=== PATIENT | male | born 1940 | race Caucasian/White ===

== ENCOUNTER 2018-01-08 13:23 | Outpatient (REF) | payer MEDICARE, SELFPAY ==
[2018-01-08 19:37] LABS: HCT 47.7 % (40.0-50.0); Mean Corp. HGB Concentration 33.5 g/dL (32.0-36.0); Mean Corpuscular Hemoglobin 31.3 pg (27.0-33.0); Mean Corpuscular Volume 93.3 fL (80-95); Platelet Count 159 x1000/uL (130-400); RBC 5.11 m/cumm (4.50-6.00); RBC Distribution Width 14.7 % (11.8-14.1); White Blood Cell Count 8.73 k/cumm (4.4-10.8)
[2018-01-08 20:02] LABS: ALT 37 U/L (12-78); AST 24 U/L (15-37); Albumin 3.9 g/dL (3.4-5.0); Alkaline Phosphatase 102 U/L (46-116); BUN 21 mg/dL (7-18); Bilirubin, Total 2.5 mg/dL (0.2-1.0); CREATININE 1.23 mg/dL (0.70-1.30); Calcium 8.4 mg/dL (8.5-10.1); Chloride 105 mmol/L (98-107); Estimated GFR 57.37 (mL/min/1.73m2); Glucose 82 mg/dL (70-100); Potassium 4.4 mmol/L (3.5-5.1); Sodium 139 mmol/L (136-145); TSH 2.08 uIU/mL (0.358-3.74); Total Protein 7.4 g/dL (6.4-8.2); Troponin I 0.02 ng/mL (0.00-0.06)
== END 2018-01-08 13:43 ==
LOC: NCHCN 13:23
PROVIDERS: PCP Internal Medicine; Visit Provider Physician Assistant Medical
DX: R06.09 Other forms of dyspnea (principal); R53.81 Other malaise; N13.30 Unspecified hydronephrosis; L97.529 Non-pressure chronic ulcer of other part of left foot with unspecified severity
CPT/HCPCS: 80053; 85027; 84443; 84484

== ENCOUNTER 2018-01-09 11:43 | Outpatient (REF) | payer MEDICARE, SELFPAY ==
[2018-01-09 19:01] LABS: Bilirubin Negative (Negative); Blood Negative (Negative); Clarity Clear; Glucose Negative (Negative); Ketones Negative (Negative); Leukocyte Esterase Negative (Negative); Nitrite Negative (Negative); Urobilinogen 0.2 EU/dL (Up TO 0.2); pH 5.5 (5-8)
== END 2018-01-09 12:03 ==
LOC: NCHCN 11:43
PROVIDERS: PCP Internal Medicine; Visit Provider Physician Assistant Medical
DX: R53.81 Other malaise (principal); N13.30 Unspecified hydronephrosis; L97.529 Non-pressure chronic ulcer of other part of left foot with unspecified severity
CPT/HCPCS: 81003

== ENCOUNTER 2018-07-04 19:19 | Outpatient (REF) | payer MEDICARE, SELFPAY ==
[2018-07-04 19:19] LABS: LDL CHOLESTEROL 74 mg/dL (<100)
== END 2018-07-04 19:39 ==
LOC: NCHCN 19:19
PROVIDERS: PCP Internal Medicine; Visit Provider Internal Medicine
DX: R06.09 Other forms of dyspnea (principal)
CPT/HCPCS: 80053; 83721; 85027

== ENCOUNTER 2018-07-09 11:32 | Outpatient (REF) | payer MEDICARE, SELFPAY ==
[2018-07-09 18:53] LABS: HCT 47.5 % (40.0-50.0); HGB 15.6 g/dL (13.5-17.5); Mean Corp. HGB Concentration 32.8 g/dL (32.0-36.0); Mean Corpuscular Hemoglobin 30.8 pg (27.0-33.0); Mean Corpuscular Volume 93.9 fL (80-95); Mean Platelet Volume 11.1 fL (8.0-11.0); Platelet Count 171 x1000/uL (130-400); RBC 5.06 m/cumm (4.50-6.00); RBC Distribution Width 14.7 % (11.8-14.1); White Blood Cell Count 6.58 k/cumm (4.4-10.8)
[2018-07-09 19:19] LABS: ALT 34 U/L (12-78); AST 24 U/L (15-37); Albumin 3.6 g/dL (3.4-5.0); Alkaline Phosphatase 97 U/L (46-116); BUN 20 mg/dL (7-18); Bilirubin, Total 2.5 mg/dL (0.2-1.0); CREATININE 1.48 mg/dL (0.70-1.30); Calcium 8.5 mg/dL (8.5-10.1); Chloride 109 mmol/L (98-107); Estimated GFR 46.21 (mL/min/1.73m2); Glucose 98 mg/dL (70-100); Potassium 5.7 mmol/L (3.5-5.1); Sodium 144 mmol/L (136-145)
== END 2018-07-09 11:52 ==
LOC: NCHCN 11:32
PROVIDERS: PCP Internal Medicine; Visit Provider Internal Medicine
DX: R06.09 Other forms of dyspnea (principal); K50.90 Crohn's disease, unspecified, without complications; L84 Corns and callosities; Z87.891 Personal history of nicotine dependence
CPT/HCPCS: 80053; 85027

== ENCOUNTER 2019-12-18 19:09 | Outpatient (REF) | payer MEDICARE, SELFPAY ==
[2019-12-18 23:02] LABS: Vitamin D 25 Total 8.4 ng/ml (30-100)
[2019-12-18 23:05] LABS: ALT 42 U/L (16-63); Calculated LDL 65 mg/dL (<100); Cholesterol 125 mg/dL (<200); HDL Cholesterol 39 mg/dL (40-60); Triglyceride 109 mg/dL (<150); Vitamin B12 425 pg/mL (193-986)
== END 2019-12-18 19:29 ==
LOC: NCHCN 19:09
PROVIDERS: PCP Internal Medicine; Visit Provider Internal Medicine
DX: I10 Essential (primary) hypertension (principal); E53.8 Deficiency of other specified B group vitamins
CPT/HCPCS: 80061; 82306; 82607; 84460

== ENCOUNTER 2020-03-18 16:59 | Outpatient (REF) | payer MEDICARE, SELFPAY ==
[2020-03-18 19:22] LABS: COMMENT (LAB VIEW ONLY) 89.04 mg/dL
[2020-03-18 19:25] LABS: Microalb ug/mg Crea 106.5 ug/mg Cr
== END 2020-03-18 17:19 ==
LOC: NCHCN 16:59
PROVIDERS: PCP Internal Medicine; Visit Provider Internal Medicine
DX: N49.2 Inflammatory disorders of scrotum (principal); N13.30 Unspecified hydronephrosis
CPT/HCPCS: 87077; 82043; 82570; 87086; 87186

== ENCOUNTER 2020-06-16 15:45 | Outpatient (REF) | payer MEDICARE, SELFPAY ==
[2020-06-16 20:28] LABS: HCT 44.2 % (40.0-50.0); HGB 14.2 g/dL (13.5-17.5); MCH 32.3 pg (27.0-33.0); MCHC 32.1 % (32.0-36.0); MCV 100.5 fL (80-95); MPV 11.3 fL (8.0-11.0); Platelet Count 167 10^3/uL (130-400); RDW 13.3 % (11.8-14.1); RDW-SD 49.8 fL; WBC 7.66 10^3/uL (4.4-10.8)
[2020-06-16 20:35] LABS: Anion Gap 6.7 mmol/L (3-11); BUN 24 mg/dL (7-18); CO2 27.3 mmol/L (21.0-32.0); CREATININE 1.3 mg/dL (0.70-1.30); Calcium 8.6 mg/dL (8.5-10.1); Chloride 110 mmol/L (98-107); Estimated GFR 53.39 (mL/min/1.73m2); Glucose 90 mg/dL (74-106); Potassium 4.9 mmol/L (3.5-5.1); Sodium 144 mmol/L (136-145)
[2020-06-16 20:50] LABS: PHOSPHORUS 3.3 mg/dL (2.6-4.7)
== END 2020-06-16 15:46 | disposition home or self-care (01) ==
LOC: NCHCN 15:45
PROVIDERS: PCP Internal Medicine; Visit Provider Internal Medicine
DX: I10 Essential (primary) hypertension (principal); N49.2 Inflammatory disorders of scrotum; K50.90 Crohn's disease, unspecified, without complications; Z79.899 Other long term (current) drug therapy
CPT/HCPCS: 80069; 85027

== ENCOUNTER 2021-05-23 01:10 | Outpatient (CLI) | payer MEDICARE, SELFPAY ==
--- NOTE | 2021-05-23 15:04 | DI.US_ITS ---
APPROVED REPORT EXAM: Comprehensive 2D, Doppler, and color-flow Echocardiogram Patient Location: Out-Patient Elevator Erector: Carly Estrada RDCS (AE) Indications: BOBO, Pre pacemaker change Other Information Study Quality: Adequate Conclusion Normal left ventricular wall thickness and chamber size. Estimated ejection fraction is 60%. Wall m otion is normal Normal right ventricular size and systolic function Both atria are normal in size Device lead noted in the right heart Trileaflet aortic valve without stenosis or regurgitation Normal mitral valve with mild regurgitation Normal tricuspid valve with mild to moderate regurgitation. Estimated right ventricular systolic pre ssure is 27 mmHg Wall motion Left Ventricle The left ventricle is normal size. The left ventricular systolic function is normal. The left ventric ular ejection fraction is within the normal range. There is normal left ventricular wall thickness. T here is normal LV segmental wall motion. There is no ventricular septal defect visualized. LVEF is 60 %. Right Ventricle The right ventricle is normal size. The right ventricular systolic function is normal. The RVSP is 27 .0 mmHg. Pacemaker lead is present in the right ventricle. Atria The left atrium size is normal. The right atrium size is normal. The interatrial septum is intact wit h no evidence for an atrial septal defect. Aortic Valve The aortic valve is normal in structure. Aortic valve is trileaflet. There is no aortic valvular sten osis. No aortic regurgitation is present. Mitral Valve The mitral valve is normal in structure. No evidence of mitral valve stenosis. Mild mitral regurgitat ion. Tricuspid Valve The tricuspid valve is normal in structure. There is no tricuspid valve stenosis. Mild to moderate tr icuspid regurgitation. Pulmonic Valve The pulmonary valve is normal in structure. There is no pulmonic valvular stenosis. Trace pulmonic re gurgitation. Great Vessels The aortic root is normal in size. The ascending aorta is normal in size. Aortic arch is not well vis ualized. IVC is normal in size and collapses >50% with inspiration. Pericardium There is no pericardial effusion. 2D Dimensions IVSD d PLAX 1.10 cm M: 0.6-1.2 LV Vol A2C d MOD 144.4 mL LVPW d PLAX 1.12 cm M: 0.6 - 1.2 LV Vol A4C d MOD 132.2 mL LVID d PLAX 4.57 cm M: 4.2 - 5.8 LA vol/ BSA A2C s A-L 31.2 mL/m2 LVDs 3.20 cm M: 2.5 - 4.0 LA vol/ BSA A4C s A-L 29.8 mL/m2 Ao Root d 3.18 cm M: 3.1 - 3.7 LA Vol/ BSA Biplane s A-L 31.8 mL/m2 RA Area A4C 17.20 cm2 LA Area A4C s MOD 23.51 cm2 RA Vol/ BSA A4C s A-L 22.4 mL/m2 LA Area A2C s MOD 23.10 cm2 Ao Asc Diam d 3.30 cm M: 2.6 - 3.4 LV EF A4C MOD 59.6 % LV EF Teichholz 57.0 % LV EF A2C MOD 60.6 % LVEF (Johnson's) 60.82 % M: 52 - 72 LV EF Biplane MOD 60.8 % LV Volume 100.09 mL M: 62 - 150 SV 85.60 mL LV Volume Index 42.23 mL/m2 M: 34 - 74 SV Index 36.14 mL/m2 LV Vol Biplane MOD 140.8 mL FS 29.75 % M-Mode TAPSE 2.44 cm (M/F) >1.7 LV Diastology MV E' medial 0.065 (>0.07 m/s) E/A Ratio 1.1 LV E/e MED 10.20 (<14) MV E Vmax 0.66 (0.4-1.3 m/s) MV E' lateral 0.101 (>0.1 m/s) MV A Vmax 0.60 (0.4-1.3 m/s) LV E/e LAT 6.50 (<14) MV E/A Ratio 1.03 MV E/E' medial 10.22 MV E/E' lateral 6.53 Aortic Valve LVOT Area 2.82 cm2 AoV Area Vmax 1.96 cm2 LVOT Vmax 0.85 m/s AoV Area/ BSA (Vmax) 0.83 cm2/m2 LVOT Mean Chaparro. 0.60 m/s HEENA Mean Chaparro. 1.92 cm2 LVOT Peak Grad 2.9 mmHg HEENA Mean Chaparro. Index 0.81 cm2/m2 LVOT Mean Grad 1.6 mmHg LVOT VTI 0.188 m LVOT Diam s 1.85 cm AoV Vmax 1.23 m/s Velocity Ratio 0.69 AoV Mean Chaparro. 0.88 m/s AoV Peak Grad 6.0 mmHg LVOT SV 53.12 mL AoV Mean Grad 3.4 mmHg AoV VTI 0.222 m AoV Area VTI 2.40 cm2 AoV Area/ BSA (VTI) 1.01 cm/m2 Mitral Valve MV DT 258 (160-240 msec) MR Vmax 4.69 m/s MV PHT 75 msec MR VTI 1.453 m MV Area PHT 2.94 cm2 MR Peak Grad 88.1 mmHg MV VTI 0.244 m MR Mean Grad 58.2 mmHg MV VTI Annulus 0.285 m MV Area VTI 2.60 (4.0-6.0 cm2) Pulmonary Valve PV Vmax 1.05 (0.5-1.5 m/s) RVOT Peak Gr. 1.13 mmHg PV Peak Grad 4.4 mmHg RVOT Mean Gr. 0.55 mmHg PV Mean Grad 2.4 mmHg RVOT VTI 0.108 m PV VTI 0.215 m RVOT Vmax 0.53 m/s Tricuspid Valve TR Peak Grad 23.9 mmHg TR Vmax 2.45 m/s RA Pressure 3.00 mmHg RVSP (TR) 27.0 mmHg
== END 2021-05-23 01:30 ==
PROVIDERS: PCP Internal Medicine; Visit Provider Internal Medicine Cardiovascular Disease
DX: R06.09 Other forms of dyspnea (principal)
CPT/HCPCS: 93306

== ENCOUNTER → 2021-08-03 01:27 | Outpatient (CLI) | payer MEDICARE, SELFPAY ==
--- NOTE | 2021-08-03 07:00 | DI.NM_ITS ---
Exam(s) NM ABSCESS IMG WHOLE BODY GRP History: STREPTOCCAL SEPSIS Z40.9. Priors: None Examination: Study was done with technetium 99 labeled white blood cells-11 millicurie. Imaging was performed at 1 and 3 hours post injection. Findings: On the 1 hour images there is some activity over the posterior right hip region but this is from cont amination and is absent from repeat images performed following removal of overlying clothing. This study appears negative with no abnormal uptake seen in the area of apparent clinical concern in the right perineum in this patient who has inflammatory bowel disease. Also no abnormal uptake seen elsewhere in the pelvis and abdomen. Also no abnormal uptake seen in the chest. No abnormal uptake in the neck. No abnormal uptake in the skeleton. Impression: Negative study. No abnormal focal accumulation of tagged white blood cells.
== END ==
PROVIDERS: PCP Internal Medicine; Visit Provider Internal Medicine
DX: A40.9 Streptococcal sepsis, unspecified (principal)
CPT/HCPCS: 96365; 78802

== ENCOUNTER 2021-08-03 02:05 | Outpatient (RCR) | payer MEDICARE, OTHER, SELFPAY ==
[2021-08-03] MEDS: Normal Saline Flush 10 ML SYR IVP (09:21)
[2021-08-03] MEDS: cefTRIAXone 2 GM/50 ML BAG IVPB (09:21)
== END 2021-08-18 23:59 | disposition home or self-care (01) ==
LOC: INF 02:05
PROVIDERS: PCP Internal Medicine; Visit Provider Internal Medicine
DX: A40.9 Streptococcal sepsis, unspecified (principal)
CPT/HCPCS: 96365

== ENCOUNTER 2022-02-23 16:00 | Outpatient (REF) | payer MEDICARE, SELFPAY ==
[2022-02-23 18:51] LABS: HCT 43.4 % (40.0-50.0); HGB 14.2 g/dL (13.5-17.5); MCH 31.1 pg (27.0-33.0); MCHC 32.7 % (32.0-36.0); MCV 95 fL (80-95); MPV 10.9 fL (8.0-11.0); Platelet Count 215 10^3/uL (130-400); RBC 4.56 10^6/uL (4.36-5.78); WBC 7.45 10^3/uL (4.4-10.8)
[2022-02-23 19:09] LABS: Anion Gap 8.8 mmol/L (3-11); BUN 26 mg/dL (7-18); CO2 25.2 mmol/L (21.0-32.0); CREATININE 1.4 mg/dL (0.70-1.30); Calcium 8.6 mg/dL (8.5-10.1); Calculated LDL 55 mg/dL (<100); Chloride 106 mmol/L (98-107); Cholesterol 113 mg/dL (<200); Estimated GFR 51.13 (mL/min/1.73m2); Glucose 96 mg/dL (74-106); HDL Cholesterol 37 mg/dL (40-60); Potassium 4.1 mmol/L (3.5-5.1); Sodium 140 mmol/L (136-145); Triglyceride 105 mg/dL (<150)
== END 2022-02-23 16:01 | disposition home or self-care (01) ==
LOC: NCHCN 16:00
PROVIDERS: PCP Internal Medicine; Visit Provider Internal Medicine
DX: R50.9 Fever, unspecified (principal); K50.90 Crohn's disease, unspecified, without complications; M20.12 Hallux valgus (acquired), left foot; R30.0 Dysuria; Z02.89 Encounter for other administrative examinations
CPT/HCPCS: 80048; 80061; 82306; 85027; 87077; 87086; 87186

== ENCOUNTER 2023-01-08 20:26 | Outpatient (REF) | payer MEDICARE, SELFPAY ==
[2023-01-08 20:06] LABS: HGB 11.7 g/dL (13.5-17.5); MCH 30.2 pg (27.0-33.0); MCHC 31.6 % (32.0-36.0); MCV 96 fL (80-95); MPV 11.8 fL (8.0-11.0); Platelet Count 166 10^3/uL (130-400); RBC 3.87 10^6/uL (4.36-5.78); RDW 14.9 % (11.8-14.1); RDW-SD 52.2 fL; WBC 7.04 10^3/uL (4.4-10.8)
[2023-01-08 20:35] LABS: ALT 24 U/L (16-63); Anion Gap 7.3 mmol/L (3-11); BUN 18 mg/dL (7-18); CO2 24.7 mmol/L (21.0-32.0); CREATININE 1.4 mg/dL (0.70-1.30); Calculated LDL 29 mg/dL (<100); Chloride 107 mmol/L (98-107); Cholesterol 77 mg/dL (<200); Estimated GFR 50.81 (mL/min/1.73m2); Glucose 104 mg/dL (74-106); HDL Cholesterol 38 mg/dL (40-60); Potassium 4.1 mmol/L (3.5-5.1); Sodium 139 mmol/L (136-145); Triglyceride 54 mg/dL (<150)
[2023-01-08 20:47] LABS: Creatine Kinase 162 U/L (39-308)
== END 2023-01-08 20:27 | disposition home or self-care (01) ==
LOC: NCHCN 20:26
PROVIDERS: PCP Internal Medicine; Visit Provider Internal Medicine
DX: N18.2 Chronic kidney disease, stage 2 (mild) (principal); N13.30 Unspecified hydronephrosis
CPT/HCPCS: 80048; 80061; 82550; 85027; 84460

== ENCOUNTER 2023-01-10 11:54 | Outpatient (REF) | payer MEDICARE, SELFPAY ==
[2023-01-10 19:12] LABS: Total Iron Binding Capacity 217 ug/dL (250-450)
[2023-01-10 19:21] LABS: Ferritin 243 ng/mL (26-388)
== END 2023-01-10 11:55 | disposition home or self-care (01) ==
LOC: NCHCN 11:54
PROVIDERS: PCP Internal Medicine; Visit Provider Internal Medicine
DX: D64.9 Anemia, unspecified (principal)
CPT/HCPCS: 82728; 83550

== ENCOUNTER 2023-05-21 20:38 | Outpatient (REF) | payer MEDICARE, SELFPAY ==
[2023-05-21 20:03] LABS: Abs Immature Grans 0.01 10^3/uL (0.0-0.06); Absolute Basophil Count 0.03 10^3/uL (0.0-0.2); Absolute Eosinophil Count 0.03 10^3/uL (0.0-0.7); Absolute Lymphocyte Count 0.81 10^3/uL (1.2-3.4); Absolute Monocyte Count 0.37 10^3/uL (0.1-0.8); Absolute Neutrophil Count 5.02 10^3/uL (1.2-6.7); Basophils % 0.5; Eosinophils % 0.5; HCT 33.8 % (40.0-50.0); HGB 11.3 g/dL (13.5-17.5); Immature Grans % 0.2; Lymphocytes % 12.9; MCH 31.5 pg (27.0-33.0); MCHC 33.4 % (32.0-36.0); MCV 94 fL (80-95); Monocytes % 5.9; Platelet Count 152 10^3/uL (130-400); RBC 3.59 10^6/uL (4.36-5.78); RDW 14.6 % (11.8-14.1); RDW-SD 50.2 fL; WBC 6.27 10^3/uL (4.4-10.8)
[2023-05-21 20:21] LABS: ALT 20 U/L (16-63); AST 18 U/L (15-37); Albumin 2.9 g/dL (3.4-5.0); Alkaline Phosphatase 117 U/L (46-116); Anion Gap 11.5 mmol/L (3-11); BUN 15 mg/dL (7-18); Bilirubin, Total 3.4 mg/dL (0.2-1.0); CO2 22.5 mmol/L (21.0-32.0); CREATININE 1.3 mg/dL (0.70-1.30); Calcium 8.4 mg/dL (8.5-10.1); Chloride 111 mmol/L (98-107); Estimated GFR 55.19 (mL/min/1.73m2); Glucose 136 mg/dL (74-106); Potassium 3.3 mmol/L (3.5-5.1); Sodium 145 mmol/L (136-145); TSH 1.48 uIU/Ml (0.36-3.74); Total Protein 6.9 g/dL (6.4-8.2)
== END 2023-05-21 20:39 | disposition home or self-care (01) ==
LOC: NCHCN 20:38
PROVIDERS: PCP Internal Medicine; Visit Provider Internal Medicine
DX: R63.4 Abnormal weight loss (principal); L02.214 Cutaneous abscess of groin
CPT/HCPCS: 80053; 84443; 85025; 87070; 87205

== ENCOUNTER 2023-08-20 15:08 | Outpatient (REF) | payer MEDICARE, SELFPAY | END 2023-08-20 15:09 | disposition home or self-care (01) | LOC: NCHCN 15:08 | PROVIDERS: PCP Internal Medicine; Visit Provider Nurse Practitioner Family | DX: R39.89 Other symptoms and signs involving the genitourinary system (principal); R82.998 Other abnormal findings in urine | CPT/HCPCS: 87077; 87086; 87186 ==

== ENCOUNTER → 2024-09-18 09:19 | Outpatient (BNVA) | payer MEDICARE, SELFPAY | PROVIDERS: PCP Internal Medicine; Referring Provider Internal Medicine; Visit Provider Podiatrist | DX: L97.522 Non-pressure chronic ulcer of other part of left foot with fat layer exposed (principal); L97.511 Non-pressure chronic ulcer of other part of right foot limited to breakdown of skin; E53.8 Deficiency of other specified B group vitamins; G63 Polyneuropathy in diseases classified elsewhere; N18.9 Chronic kidney disease, unspecified; B35.1 Tinea unguium; L60.3 Nail dystrophy; I87.2 Venous insufficiency (chronic) (peripheral); R60.0 Localized edema; I83.93 Asymptomatic varicose veins of bilateral lower extremities; R23.8 Other skin changes; L60.2 Onychogryphosis; L60.8 Other nail disorders; L85.8 Other specified epidermal thickening | CPT/HCPCS: 11042; 11720; 97597 ==

== ENCOUNTER 2024-09-24 01:25 | Outpatient (CLI) | payer MEDICARE, SELFPAY ==
--- NOTE | 2024-09-24 13:29 | DI.RAD_ITS ---
Exam(s) XR TOE LT GREAT EXAM: XR TOE LT GREAT CLINICAL HISTORY: ? Osteomyelitis, Distal tip ulcer,L97.522. TECHNIQUE: 2D digital imaging was performed. COMPARISON: No exams were available for comparison FINDINGS: 3 views No evidence of acute fracture or diastasis of the Lisfranc joint. 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 This bone edge appears sharp. There is skin ulcer over the distal aspect of the great toe. There are subjacent erosions and bone loss in the tuft and mid aspect of the distal phalanx of the great toe.. Proximal phalanx of the great toe appears unremarkable. Mild degenerative changes are noted in the great toe metatarsophalangeal joint. IMPRESSION: Findings are highly suspicious for osteomyelitis in the distal phalanx of the great toe. The amputation site in the 2nd toe at the proximal phalanx level appears intact and without osteomyelitis at this level. DATA REPOSITORY: RADIATION DOSE DELIVERED:
== END 2024-09-24 01:45 ==
LOC: DI 01:26
PROVIDERS: PCP Internal Medicine; Visit Provider Podiatrist
DX: L97.522 Non-pressure chronic ulcer of other part of left foot with fat layer exposed (principal)
CPT/HCPCS: 73660

== ENCOUNTER 2024-10-01 15:54 | Outpatient (REF) | payer MEDICARE, SELFPAY ==
[2024-10-01 20:32] LABS: HCT 35.3 % (40.0-50.0); HGB 11.1 g/dL (13.5-17.5); MCH 31.7 pg (27.0-33.0); MCHC 31.4 % (32.0-36.0); MCV 101 fL (80-95); MPV 11.4 fL (8.0-11.0); Platelet Count 159 10^3/uL (130-400); RBC 3.50 10^6/uL (4.36-5.78); RDW 15.7 % (11.8-14.1); RDW-SD 57.5 fL; WBC 5.56 10^3/uL (4.4-10.8)
[2024-10-01 21:05] LABS: Anion Gap 8.5 mmol/L (3-11); BUN 16 mg/dL (7-18); CO2 24.5 mmol/L (21.0-32.0); Calcium 9.0 mg/dL (8.5-10.1); Chloride 108 mmol/L (98-107); Estimated GFR 75.14 (mL/min/1.73m2); Glucose 93 mg/dL (74-106); Potassium 4.7 mmol/L (3.5-5.1); Sodium 141 mmol/L (136-145); Uric Acid 3.7 mg/dL (3.5-7.2)
== END 2024-10-01 15:55 | disposition home or self-care (01) ==
LOC: NCHCN 15:54
PROVIDERS: PCP Internal Medicine; Visit Provider Internal Medicine
DX: L71.9 Rosacea, unspecified (principal); N18.9 Chronic kidney disease, unspecified
CPT/HCPCS: 80048; 85027; 84550

== ENCOUNTER → 2024-10-09 14:29 | Outpatient (BNVA) | payer MEDICARE, SELFPAY | PROVIDERS: PCP Internal Medicine; Referring Provider Internal Medicine; Visit Provider Podiatrist | DX: Z51.89 Encounter for other specified aftercare (principal); L97.522 Non-pressure chronic ulcer of other part of left foot with fat layer exposed; L97.521 Non-pressure chronic ulcer of other part of left foot limited to breakdown of skin; N18.9 Chronic kidney disease, unspecified; G62.9 Polyneuropathy, unspecified; E53.8 Deficiency of other specified B group vitamins; G63 Polyneuropathy in diseases classified elsewhere; L60.3 Nail dystrophy; I87.2 Venous insufficiency (chronic) (peripheral); R60.0 Localized edema; Z89.422 Acquired absence of other left toe(s) | CPT/HCPCS: 99213; 97597 ==

== ENCOUNTER 2024-11-05 07:45 | Outpatient (CLI) | payer MEDICARE, SELFPAY | END 2024-11-05 07:46 | disposition home or self-care (01) | LOC: DI.CARD 07:46 | PROVIDERS: PCP Internal Medicine; Visit Provider Student in an Organized Health Care Education/Training Program | CPT/HCPCS: 93010 ==

== ENCOUNTER → 2024-11-06 13:45 | Outpatient (BNVA) | payer MEDICARE, SELFPAY | PROVIDERS: PCP Internal Medicine; Referring Provider Internal Medicine; Visit Provider Podiatrist | DX: L97.522 Non-pressure chronic ulcer of other part of left foot with fat layer exposed (principal); L97.511 Non-pressure chronic ulcer of other part of right foot limited to breakdown of skin; E53.8 Deficiency of other specified B group vitamins; N18.9 Chronic kidney disease, unspecified; G62.9 Polyneuropathy, unspecified; L60.3 Nail dystrophy; B35.1 Tinea unguium; I87.2 Venous insufficiency (chronic) (peripheral); R60.0 Localized edema | CPT/HCPCS: 97597 ==

== ENCOUNTER 2024-11-19 07:43 | Outpatient (CLI) | payer MEDICARE, SELFPAY ==
--- NOTE | 2024-11-19 07:30 | RT.EKG_ITS ---
APPROVED REPORT Exam: Resting ECG Reason for Exam: PAF Patient Location: O HR:82 bpm ECG Measurements Heart Rate 82 AXIS NV 63 P [id number] QRSd 147 QRS -43 QT 438 T 89 QTc 512 Conclusion Atrial-ventricular dual-paced complexes...other complexes also detected No further analysis attempted due to paced rhythm Baseline wander in lead(s) III
== END 2024-11-19 07:44 | disposition home or self-care (01) ==
LOC: DI.CARD 07:44
PROVIDERS: PCP Internal Medicine; Visit Provider Internal Medicine Cardiovascular Disease
DX: I45.10 Unspecified right bundle-branch block (principal); I48.0 Paroxysmal atrial fibrillation
CPT/HCPCS: 93010

== ENCOUNTER → 2024-11-19 08:33 | Outpatient (BNVA) | payer MEDICARE, SELFPAY | PROVIDERS: PCP Internal Medicine; Referring Provider Internal Medicine; Visit Provider Internal Medicine Cardiovascular Disease | DX: I48.0 Paroxysmal atrial fibrillation (principal); I45.10 Unspecified right bundle-branch block; Z45.018 Encounter for adjustment and management of other part of cardiac pacemaker | CPT/HCPCS: 93005; 93280 ==

== ENCOUNTER → 2024-12-11 14:35 | Outpatient (BNVA) | payer MEDICARE, SELFPAY | PROVIDERS: PCP Internal Medicine; Referring Provider Internal Medicine; Visit Provider Podiatrist | DX: L97.522 Non-pressure chronic ulcer of other part of left foot with fat layer exposed (principal); L97.511 Non-pressure chronic ulcer of other part of right foot limited to breakdown of skin; N18.9 Chronic kidney disease, unspecified; E53.8 Deficiency of other specified B group vitamins; G63 Polyneuropathy in diseases classified elsewhere; B35.1 Tinea unguium; L60.3 Nail dystrophy; I87.2 Venous insufficiency (chronic) (peripheral); R60.0 Localized edema; L84 Corns and callosities; I83.93 Asymptomatic varicose veins of bilateral lower extremities; R23.4 Changes in skin texture; L60.2 Onychogryphosis; L60.8 Other nail disorders | CPT/HCPCS: 11055 ==